=== PATIENT | male | born 1980 | race African-American/Black ===

== ENCOUNTER 2024-02-29 22:42 | Emergency (ER) | payer OTHER ==
[~2024-02-29] VITALS: Ht 193 cm; Wt 109.1 kg
[2024-02-29 23:01] VITALS: TEMP 98.8
[2024-02-29] MEDS ORDERED: OXYC10TA48 PO (23:12)
[2024-02-29 23:30] VITALS: BP 106/69; PULSE 69; RESP 17
== END 2024-03-01 01:22 | disposition home or self-care (01) ==
LOC: EMS 22:44
DX: S61.102A Unspecified open wound of left thumb with damage to nail, initial encounter (principal); G89.29 Other chronic pain; Z88.0 Allergy status to penicillin; X58.XXXA Exposure to other specified factors, initial encounter; Y93.89 Activity, other specified; Y92.89 Other specified places as the place of occurrence of the external cause; Y99.8 Other external cause status
CPT/HCPCS: 99281; 99282; Z7502